=== PATIENT | male | born 1950 | race Asian ===

== ENCOUNTER 2018-12-31 18:50 | Emergency (ER) | payer MEDICARE, BC ==
[2018-12-31] MEDS ORDERED: Diphtheria,Pertussis(Acell),Tetanus Vaccine 0.5 ML SDV IM ONE (19:42)
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
--- NOTE | 2018-12-31 20:18 | CRLCT ---
INDICATION: Status post head injury with memory problems. Post concussive symptoms. COMPARISON: None available. TECHNIQUE: CT examination of the head was performed with 3 mm thick axial sections without intravenous contrast. Images were obtained from the vertex of the skull through the skull base, and I examined the images with the brain and bone windows. Please note that all CT scans at this facility use dose modulation, iterative reconstruction, and/or weight-based dosing when appropriate to reduce radiation dose to as low as reasonably achievable. FINDINGS: : The brain is normal in appearance for the patient`s age on today`s study, with no sign of mass lesion, mass effect, hemorrhage, or edema. There is mild dilatation of the ventricles and sulci representing mild, age-appropriate atrophy. The visualized portions of the orbits are normal in appearance. The visualized portions of the paranasal sinuses and mastoids are clear. The osseous structures are normal in their appearance with no sign of abnormality in the skull base or calvarium. IMPRESSION: No sign of closed head injury. Normal noncontrast CT of the head for the patient`s age. Mild, age-appropriate atrophy. Please note that all CT scans at this facility use dose modulation, iterative reconstruction, and/or weight-based dosing when appropriate to reduce radiation dose to as low as reasonably achievable. Dictated by Pascual Hammond MD @ Dec 31 2018 8:14PM Signed by Dr. Pascual Hammond @ Dec 31 2018 8:16PM
== END 2018-12-31 21:06 | disposition home or self-care (01) ==
LOC: JP.ED 18:50
DX: S06.0X9A Concussion with loss of consciousness of unspecified duration, initial encounter (principal); S50.311A Abrasion of right elbow, initial encounter; V18.0XXA Pedal cycle driver injured in noncollision transport accident in nontraffic accident, initial encounter
CPT/HCPCS: 70450; 90471; 99283-25; 99284